=== PATIENT | male | born 1945 | race Caucasian/White ===

== ENCOUNTER 2018-10-10 21:14 | Inpatient (IN) ==
[2018-10-10] MEDS ORDERED: FLUCONAZOLE 100 MG TABLET PO ONE (21:27)
[2018-10-10] MEDS ORDERED: 0.9 % SODIUM CHLORIDE 500 ML IV ONE (21:29)
[2018-10-10] MEDS ORDERED: cefTRIAXone 1 GM VIAL IV ONE (21:30)
[2018-10-10 22:59] LABS: Basophils # (Auto) 0 K/mcL (0.0-0.3); Basophils % (Auto) 0 % (0.0-2.0); Eosinophils # (Auto) 0.1 K/mcL (0.0-0.7); Eosinophils % (Auto) 0.4 % (0.0-7.0); Lymphocytes # (Auto) 0.4 K/mcL (1.5-4.8); Lymphocytes % (Auto) 3.4 % (15.5-49.0); Mean Cell Volume 82.3 fL (80.0-100.0); Mean Corpuscular HGB Conc 32.4 g/dL (31.0-36.0); Monocytes # (Auto) 0 K/mcL (0.1-0.9); Monocytes % (Auto) 0.2 % (1.0-12.0); Platelet Count 94 K/mcL (140-440); Red Cell Distribution Width 22.7 % (11.5-14.5)
[2018-10-10 23:19] LABS: ALT/SGPT 231 U/l (0-40); Albumin 2.3 gm/dL (3.2-5.2); Albumin/Globulin Ratio 0.8 (1.0-2.3); Alkaline Phosphatase 208 U/L (39-117); Blood Urea Nitrogen 46 mg/dl (8-23)
[2018-10-10] MEDS ORDERED: FUROSEMIDE 40 MG/4 ML VIAL IV ONE (23:43)
[2018-10-11] MEDS ORDERED: LEVOFLOXACIN 500 MG/100 ML BAG IV ONE (00:08)
--- NOTE | 2018-10-11 00:34 | Emergency Department Note ---
General Adult HPI - General Chief complaint: Cold/Flu Symptoms Stated complaint: crackles in lunch Time Seen by Provider: 10/10/18 21:19 Source: patient Mode of arrival: wheelchair Limitations: no limitations - History of Present Illness HPI Narrative: 73-year-old male comes in after being sick for [facility]. He has audible rales without a stethoscope and thrush. General malaise but no fever. He is DNR and comfort measures only but is post form shows that he approves of antibiotics blood products and fluids are okay-he does want treatment at this time - Related Data Home Medications Medication Instructions Recorded Confirmed Acetaminophen [Tylenol] 500 mg PO Q8HP PRN 10/11/18 10/11/18 Amiodarone HCl [Cordarone] 200 mg PO QAC 10/11/18 10/11/18 Amoxicillin/Potassium Clav 875 mg PO Q12H 10/11/18 10/11/18 [Augmentin] Aspirin [Aspirin EC] 81 mg PO DAILY 10/11/18 10/11/18 Atorvastatin [Lipitor] 40 mg PO HS 10/11/18 10/11/18 Bisacodyl [Dulcolax] 10 mg HI PRN PRN 10/11/18 10/11/18 Cholecalciferol (Vitamin D3) 5,000 unit PO WEEKLY 10/11/18 10/11/18 [Dialyvite Vitamin D] Dexamethasone [Decadron] 4 mg PO QID 10/11/18 10/11/18 Ferrous Sulfate [Iron] 325 mg PO Q48 10/11/18 10/11/18 Furosemide [Lasix] 20 mg PO DAILY 10/11/18 10/11/18 Gabapentin [Neurontin] 300 mg PO HS 10/11/18 10/11/18 Hydrocodone/APAP 7.5/325Mg [[place] 1 - 2 tab PO Q4HP PRN 10/11/18 10/11/18 7.5-325Mg] Insulin Glargine, Human [Lantus] 15 unit SQ HS 10/11/18 10/11/18 Insulin Glargine, Human [Lantus] 21 unit SQ DAILY 10/11/18 10/11/18 Insulin Lispro [HumaLOG] 0 unit SQ ACHS 10/11/18 10/11/18 Latanoprost/Pf [Latanoprost 0.005% 7.5 ml OP HS 10/11/18 10/11/18 Eye Drop] Mag Hydrox/Al Hydrox/Simeth 30 ml PO Q4HP PRN 10/11/18 10/11/18 [Maalox] Melatonin [Melatin] 6 mg PO HSP PRN 10/11/18 10/11/18 Metoprolol Succinate [Toprol Xl] 25 mg PO DAILY 10/11/18 10/11/18 Na Phos,M-B/Na Phos,Di-Ba [Fleets 1 dose HI PRN PRN 10/11/18 10/11/18 Adult] Pantoprazole [Protonix] 40 mg PO QAMAC 10/11/18 10/11/18 Timolol Maleate/Pf [Timoptic 0.5% 1 each OS BID 10/11/18 10/11/18 Ocudose Drop] Warfarin [Coumadin] 2.5 mg PO DAILY 10/11/18 10/11/18 buPROPion HCL [Wellbutrin Xl] 150 mg PO DAILY 10/11/18 10/11/18 Allergies Allergy/AdvReac Type Severity Reaction Status Date / Time No Known Drug Allergies Allergy Unverified 10/10/18 21:17 Review of Systems All systems ED: reviewed and negative except as stated. Past Medical History - Past Medical History Attestation: Yes: The following information was validated with the patient. Medical history: Reports: arthritis, CHF, DM, glaucoma, hyperlipidemia, hypertension, pulmonary embolus Surgical history ED: Reports: coronary bypass (CABG), pacemaker/AICD - Social History smoking status: Former smoker Physical Exam Ill-appearing male. Normocephalic atraumatic. Conjunctive are clear sclerae nonicteric. No nasal discharge or congestion. Oropharynx is with somewhat dry buccal mucosa-he has white exudate all over his soft palate consistent with thrush. Posterior pharynx is clear. Neck is supple without lymphadenopathy thyromegaly or carotid bruit. Heart is regular rate and rhythm. No murmur appreciated. Lungs are with rales audible even without a stethoscope. End expiratory wheezes as well. Productive cough. Abdomen is soft nontender nondistended. He has a below the knee amputation on the right. Alert oriented but depressed mood Limitations: no limitations Course Vital Signs Temperature 96.3 F L 10/10/18 21:15 Pulse Rate 73 10/10/18 21:15 Respiratory Rate 20 10/10/18 21:15 Blood Pressure 116/69 10/10/18 21:15 Pulse Oximetry (%) 96 10/10/18 21:15 Temperature 98.2 F 10/11/18 03:40 Pulse Rate 56 L 10/11/18 00:31 Respiratory Rate 22 10/11/18 03:40 Blood Pressure 101/60 10/11/18 03:40 Pulse Oximetry (%) 96 10/11/18 03:40 Medical Decision Making - Medical Records Medical records reviewed: Yes I reviewed the patient's medical records. - Lab Data Lab results reviewed: Yes I reviewed the patient's lab results. Result diagrams: 10/10/18 21:42 10/10/18 21:42 Lab Results 10/10/18 10/10/18 10/10/18 Range/Units 21:42 21:42 21:42 WBC 12.6 H (4.5-11.0) K/mcL RBC 4.90 (4.50-5.90) M/mcL Hgb 13.1 L (13.5-16.5) g/dL Hct 40.4 L (41.0-55.0) % POC Hct 41.0 (41.0-55.0) % MCV 82.3 (80.0-100.0) fL MCH 26.7 (26.0-34.0) pg MCHC 32.4 (31.0-36.0) g/dL RDW 22.7 H (11.5-14.5) % Plt Count 94 L (140-440) K/mcL MPV 9.1 (7.4-10.4) fL Gran % 96.0 H (38.0-78.0) % Lymph % (Auto) 3.4 L (15.5-49.0) % Douglas % (Auto) 0.2 L (1.0-12.0) % Eos % (Auto) 0.4 (0.0-7.0) % Baso % (Auto) 0 (0.0-2.0) % Gran # 12.1 H (1.8-8.0) K/mcL Lymph # (Auto) 0.4 L (1.5-4.8) K/mcL Douglas # (Auto) 0 L (0.1-0.9) K/mcL Eos # (Auto) 0.1 (0.0-0.7) K/mcL Baso # (Auto) 0 (0.0-0.3) K/mcL Differential Comment Rare nrbcs on scan PT (11.9-14.5) sec INR (0.9-1.1) VBG Lactic Acid 2.7 H (0.5-2.0) mmol/L POC Sodium 137 (133-145) mmol/L Sodium 135 (133-145) mmol/L POC Potassium 4.6 (3.3-5.1) mmol/L Potassium 4.9 (3.3-5.1) mmol/L POC Chloride 103 (96-108) mmol/L Chloride 102 (96-108) mmol/L Carbon Dioxide 21 L (22-30) mmol/L POC Total CO2 22 (22-30) mmol/L Anion Gap 12.0 (8-16) POC BUN 42 H (8-23) mg/dl BUN 46 H (8-23) mg/dl Creatinine 1.1 (0.7-1.2) mg/dl POC Creatinine 1.0 (0.7-1.2) mg/dl GFR Calculation 65 Glucose 279 H (70-105) mg/dL POC Glucose 227 H (70-105) mg/dL Calcium 7.8 L (8.6-10.4) mg/dl POC WB Ioniz Calcium 1.06 L (1.16-1.32) mmol/L Magnesium 2.0 (1.6-2.5) mg/dL Total Bilirubin 0.4 (0.0-1.0) mg/dL AST 60 H (0-37) U/l ALT 231 H (0-40) U/l Alkaline Phosphatase 208 H (39-117) U/L NT-Pro-B Natriuret Pep Total Protein 5.1 L (5.9-8.4) gm/dL Albumin 2.3 L (3.2-5.2) gm/dL Globulin 2.8 (2.2-3.7) gm/dL Albumin/Globulin Ratio 0.8 L (1.0-2.3) Procalcitonin (<0.10) ng/mL 03/12/19 03/12/19 03/12/19 Range/Units 21:42 21:42 21:42 WBC (4.5-11.0) K/mcL RBC (4.50-5.90) M/mcL Hgb (13.5-16.5) g/dL Hct (41.0-55.0) % POC Hct (41.0-55.0) % MCV (80.0-100.0) fL MCH (26.0-34.0) pg MCHC (31.0-36.0) g/dL RDW (11.5-14.5) % Plt Count (140-440) K/mcL MPV (7.4-10.4) fL Gran % (38.0-78.0) % Lymph % (Auto) (15.5-49.0) % Douglas % (Auto) (1.0-12.0) % Eos % (Auto) (0.0-7.0) % Baso % (Auto) (0.0-2.0) % Gran # (1.8-8.0) K/mcL Lymph # (Auto) (1.5-4.8) K/mcL Douglas # (Auto) (0.1-0.9) K/mcL Eos # (Auto) (0.0-0.7) K/mcL Baso # (Auto) (0.0-0.3) K/mcL Differential Comment PT 28.5 H (11.9-14.5) sec INR 2.7 H (0.9-1.1) VBG Lactic Acid (0.5-2.0) mmol/L POC Sodium (133-145) mmol/L Sodium (133-145) mmol/L POC Potassium (3.3-5.1) mmol/L Potassium (3.3-5.1) mmol/L POC Chloride (96-108) mmol/L Chloride (96-108) mmol/L Carbon Dioxide (22-30) mmol/L POC Total CO2 (22-30) mmol/L Anion Gap (8-16) POC BUN (8-23) mg/dl BUN (8-23) mg/dl Creatinine (0.7-1.2) mg/dl POC Creatinine (0.7-1.2) mg/dl GFR Calculation Glucose (70-105) mg/dL POC Glucose (70-105) mg/dL Calcium (8.6-10.4) mg/dl POC WB Ioniz Calcium (1.16-1.32) mmol/L Magnesium (1.6-2.5) mg/dL Total Bilirubin (0.0-1.0) mg/dL AST (0-37) U/l ALT (0-40) U/l Alkaline Phosphatase (39-117) U/L NT-Pro-B Natriuret Pep TNP Total Protein (5.9-8.4) gm/dL Albumin (3.2-5.2) gm/dL Globulin (2.2-3.7) gm/dL Albumin/Globulin Ratio (1.0-2.3) Procalcitonin 0.17 (<0.10) ng/mL 10/11/18 Range/Units 00:16 WBC (4.5-11.0) K/mcL RBC (4.50-5.90) M/mcL Hgb (13.5-16.5) g/dL Hct (41.0-55.0) % POC Hct (41.0-55.0) % MCV (80.0-100.0) fL MCH (26.0-34.0) pg MCHC (31.0-36.0) g/dL RDW (11.5-14.5) % Plt Count (140-440) K/mcL MPV (7.4-10.4) fL Gran % (38.0-78.0) % Lymph % (Auto) (15.5-49.0) % Douglas % (Auto) (1.0-12.0) % Eos % (Auto) (0.0-7.0) % Baso % (Auto) (0.0-2.0) % Gran # (1.8-8.0) K/mcL Lymph # (Auto) (1.5-4.8) K/mcL Douglas # (Auto) (0.1-0.9) K/mcL Eos # (Auto) (0.0-0.7) K/mcL Baso # (Auto) (0.0-0.3) K/mcL Differential Comment PT (11.9-14.5) sec INR (0.9-1.1) VBG Lactic Acid (0.5-2.0) mmol/L POC Sodium (133-145) mmol/L Sodium (133-145) mmol/L POC Potassium (3.3-5.1) mmol/L Potassium (3.3-5.1) mmol/L POC Chloride (96-108) mmol/L Chloride (96-108) mmol/L Carbon Dioxide (22-30) mmol/L POC Total CO2 (22-30) mmol/L Anion Gap (8-16) POC BUN (8-23) mg/dl BUN (8-23) mg/dl Creatinine (0.7-1.2) mg/dl POC Creatinine (0.7-1.2) mg/dl GFR Calculation Glucose (70-105) mg/dL POC Glucose (70-105) mg/dL Calcium (8.6-10.4) mg/dl POC WB Ioniz Calcium (1.16-1.32) mmol/L Magnesium (1.6-2.5) mg/dL Total Bilirubin (0.0-1.0) mg/dL AST (0-37) U/l ALT (0-40) U/l Alkaline Phosphatase (39-117) U/L NT-Pro-B Natriuret Pep 9457.0 H Total Protein (5.9-8.4) gm/dL Albumin (3.2-5.2) gm/dL Globulin (2.2-3.7) gm/dL Albumin/Globulin Ratio (1.0-2.3) Procalcitonin (<0.10) ng/mL Arterial blood gases pH 7.48 PCO2 33 PO2 69 - Radiology Data Radiology results reviewed: Yes I reviewed the patient's radiology results. Chest x-ray shows bilateral infiltrates more prominent on the left. Could be underlying or superimposed pulmonary vascular congestion Disposition Pt seen by [facility] [facility]/PA only: No Clinical Impression: Thrush of mouth and esophagus Pneumonia Qualifiers: Pneumonia type: due to unspecified organism Laterality: left Lung location: unspecified part of lung Qualified Code(s): J18.9 - Pneumonia, unspecified organism CHF (congestive heart failure) Qualifiers: Heart failure type: unspecified Heart failure chronicity: acute on chronic Qualified Code(s): I50.9 - Heart failure, unspecified Summary: Patient was seen and evaluated found to have pneumonia with underlying CHF as well, perhaps fluid overloaded. Vital signs were stable. We got blood cultures and started Rocephin for the pneumonia fluconazole for the thrush and furosemide for the CHF. patient did not want to come into the hospital here but wanted to go to [facility] in [place] as his family is that area. However I discussed the case with the hospitalist at [facility], Dr. Benavides, who is willing to accept the patient but likely Medicare would not pay for lateral transfer. So I discussed the case with Dr. Sultana, the hospitalist here who agreed to accept the patient for further care and evaluation in the hospital. He advised me to add Levaquin Disposition: Xfer As Inpt ([facility]) Condition: Fair
[2018-10-11] MEDS ORDERED: HYDROcodone/APAP 5/325MG TABLET PO PRN (00:35)
[2018-10-11] MEDS ORDERED: ONDANSETRON 4 MG/2 ML VIAL IV PRN (00:35)
--- NOTE | 2018-10-11 03:16 | XRay Report ---
CLINICAL INFORMATION: rales COMPARISON: 06/07/2018 FINDINGS: Implantable cardioverter defibrillator remains stable satisfactory position without evidence of wire breakage or other complication. Transcatheter aortic valve replacement remains in stable position without evidence of complication. Sternotomy change is again noted.Mild cardiomegaly is stable. Mediastinum and pulmonary vasculature are, otherwise, unremarkable. Mild infiltrates present in both perihilar regions - more prominent on the left. No effusions IMPRESSION: Bilateral perihilar infiltrates - more prominent on the left. Interpreted and Authenticated by: Valdo Coughlin 10/11/18
[2018-10-11] MEDS ORDERED: DEXTROSE 31 GM ORAL.SUSP PO PRN (07:15)
[2018-10-11] MEDS ORDERED: POTASSIUM CHLORIDE 20 MEQ PACKET PO PRN (07:15)
[2018-10-11] MEDS ORDERED: MAGNESIUM SULFATE 2 GM/50 ML BAG IV PRN (07:15)
[2018-10-11] MEDS ORDERED: ACETAMINOPHEN 325 MG TABLET PO PRN (07:15)
[2018-10-11] MEDS ORDERED: MELATONIN 3 MG TABLET PO PRN (07:17)
[2018-10-11] MEDS ORDERED: ACETAMINOPHEN 500 MG TABLET PO PRN (07:17)
[2018-10-11] MEDS ORDERED: BISACODYL 10 MG SUPP.RECT PR PRN (07:17)
[2018-10-11] MEDS ORDERED: MAG HYDROX/AL HYDROX/SIMETH 30 ML ORAL.SUSP PO PRN (07:17)
--- NOTE | 2018-10-11 07:50 | Internal Med History&Physical ---
Medical - H&P: HPI Patient information: Note initiated : 10/11/18 at 7:44 am Service Date, if different from initiated Date: [] Patient: Vadim Key 73 y/o M admitted on 10/11/18 for Crackles In Lung. Chief Complaint: [] Chief complaint: SOB History of present illness: Mr. Key is a 73 year old M with a history of NYHA class III systolic heart failure with EF 26%/TAPVR/pulmonary embolism/atrial fibrillation/insulin- dependent diabetes who presents to [facility] ER from [facility] at [place] with worsening shortness of breath that has progressed over the last couple of weeks. Patient is accompanied with his [place]. Patient lives at [place] and sees primary care physician Dr. Rodriguez. He has been recovering from recent hospitalization at [place] and was transferred to [facility]. Patient denies shaking chills fever however endorses to being increasingly fatigued and weak over the last couple of weeks. Symptoms associated with productive yellow sputum. Denies associated shaking chills headache myalgia or joint pain or rash. He complains of associated loss of appetite. He has not been able to function or participate in therapies in the last few days. Initial workup in the ER was consistent with chest infiltrates consistent with pneumonia and sepsis with elevated white count. Hospitalist service was consulted for admission after patient received antibiotics along breathing treatments. At the time evaluation patient is lethargic fatigued. No family present. Was able to endorse a history as above but was very weak to provide a detailed history. Most of the history is obtained from review of medical records and ER physician. Review of systems 10 point review of system was performed and is negative except as discussed above Medical - H&P: PMH Medical history: Insulin-dependent diabetes History of CAD History of pulmonary embolism 03/2018 History of NYHA class III systolic heart failure with EF 26-34% CABG four-vessel 1987, CABG three-vessel 9098 Chronic kidney disease stage III Aortic valve stenosis Lumbar spinal stenosis Atrial fibrillation Anticoagulation Coumadin Pacemaker defibrillator Peripheral vascular disease Hypertension Vascular disease Anxiety depression Surgical history: CABG Right leg amputation BKA 05/09/18 Pheochrome, 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 TA VR 10/2016 Pertinent family history: Mother CVA Father CAD/narcolepsy Sister back problem, renal stone Social history: to his Marlys Lives in [place] Quit smoking 3 years ago Currently undergoing rehabilitation at [facility] PCP at [facility] - H&P: Meds Home Medications Medication Instructions Recorded Confirmed Type Acetaminophen [Tylenol] 500 mg PO Q8HP PRN 10/11/18 10/11/18 History Amiodarone HCl [Cordarone] 200 mg PO QAMCC 10/11/18 10/11/18 History Amoxicillin/Potassium Clav 875 mg PO Q12H 10/11/18 10/11/18 History [Augmentin] Aspirin [Aspirin EC] 81 mg PO DAILY 10/11/18 10/11/18 History Atorvastatin [Lipitor] 40 mg PO HS 10/11/18 10/11/18 History Bisacodyl [Dulcolax] 10 mg SC PRN PRN 10/11/18 10/11/18 History Cholecalciferol (Vitamin D3) 5,000 unit PO WEEKLY 10/11/18 10/11/18 History [Dialyvite Vitamin D] Dexamethasone [Decadron] 4 mg PO QID 10/11/18 10/11/18 History Ferrous Sulfate [Iron] 325 mg PO Q48 10/11/18 10/11/18 History Furosemide [Lasix] 20 mg PO DAILY 10/11/18 10/11/18 History Gabapentin [Neurontin] 300 mg PO HS 10/11/18 10/11/18 History Hydrocodone/APAP 7.5/325Mg [[place] 1 - 2 tab PO Q4HP PRN 10/11/18 10/11/18 History 7.5-325Mg] Insulin Glargine, Human [Lantus] 15 unit SQ HS 10/11/18 10/11/18 History Insulin Glargine, Human [Lantus] 21 unit SQ DAILY 10/11/18 10/11/18 History Insulin Lispro [HumaLOG] 0 unit SQ ACHS 10/11/18 10/11/18 History Latanoprost/Pf [Latanoprost 0.005% 7.5 ml OP HS 10/11/18 10/11/18 History Eye Drop] Mag Hydrox/Al Hydrox/Simeth 30 ml PO Q4HP PRN 10/11/18 10/11/18 History [Maalox] Melatonin [Melatin] 6 mg PO HSP PRN 10/11/18 10/11/18 History Metoprolol Succinate [Toprol Xl] 25 mg PO DAILY 10/11/18 10/11/18 History Na Phos,M-B/Na Phos,Di-Ba [Fleets 1 dose SC PRN PRN 10/11/18 10/11/18 History Adult] Pantoprazole [Protonix] 40 mg PO QAMAC 10/11/18 10/11/18 History Timolol Maleate/Pf [Timoptic 0.5% 1 each OS BID 10/11/18 10/11/18 History Ocudose Drop] Warfarin [Coumadin] 2.5 mg PO DAILY 10/11/18 10/11/18 History buPROPion HCL [Wellbutrin Xl] 150 mg PO DAILY 10/11/18 10/11/18 History Allergies Allergy/AdvReac Type Severity Reaction Status Date / Time No Known Drug Allergies Allergy Unverified 10/10/18 21:17 Medical - H&P: Exam - Constitutional Vitals: Temp Pulse Resp BP Pulse Ox 98.2 F 56 L 22 101/60 96 10/11/18 03:40 10/11/18 00:31 10/11/18 03:40 10/11/18 03:40 10/11/18 03:40 Exam: Fatigue and malaise Head normocephalic Neck lymphadenopathy Oral cavity dry No ear discharge S1 and S2 irregular rhythm, pacemaker, a midline sternotomy incision Diminished breath sounds with inspiratory crackles Abdomen soft Right BKA, upper and lower extremity abrasion,/crusted lesions Sacral ulceration Generalized bruising Psychiatric anxious fatigued Neuro normal heart function Medical - H&P: Reslt - Labs CBC & Chem 7: 10/10/18 21:42 10/10/18 21:42 Labs: Short CBC 10/10/18 Range/Units 21:42 WBC 12.6 H (4.5-11.0) K/mcL Hgb 13.1 L (13.5-16.5) g/dL Hct 40.4 L (41.0-55.0) % Plt Count 94 L (140-440) K/mcL BMP 10/10/18 21:42 Sodium 135 Potassium 4.9 Chloride 102 Carbon Dioxide 21 L BUN 46 H Creatinine 1.1 Glucose 279 H Calcium 7.8 L Liver Function 10/10/18 Range/Units 21:42 Total Bilirubin 0.4 (0.0-1.0) mg/dL AST 60 H (0-37) U/l ALT 231 H (0-40) U/l Alkaline Phosphatase 208 H (39-117) U/L Albumin 2.3 L (3.2-5.2) gm/dL Medical - H&P: A/P (1) Nosocomial pneumonia Current visit: Yes Status: Acute * Nosocomial versus aspiration pneumonia-initiate broad antibiotic coverage for anaerobes/gram negatives, sputum/blood cultures, aspiration precaution. Initiate ST eval * Hypoxic respiratory failure secondary to above-antibiotic coverage * History of CAD/A. fib/defibrillator pacemaker. Last echo 34%, nuclear stress test 2018 26%. * DM type II continue basal prandial insulin * Generalized weakness started PT OT/nutrition support * Hyperlipidemia on statin * History of CAD on aspirin and statin, metoprolol * Atrial fibrillation on amiodarone/metoprolol/anticoagulation on Coumadin * History of PE-continue anticoagulation * History of glaucoma continue Timolol/latanoprost * Anxiety disorder on bupropion * Neuropathy and gabapentin * DNR * Prophylaxis Coumadin Plan * Await records from PCP office * Empiric broad antibiotic coverage * ST eval/aspiration precaution * Pre-existing medical condition management as above * PT OT/nutrition support * Inpatient admission PSI score over 100, anticipate minimum two midnight hospitalization Medical - H&P: Qual - VTE Deep Vein Thrombosis/Pulmonary Embolism Present on Admission: No
[2018-10-11] MEDS: HYDROCODONE/APAP 7.5/325MG TABLET PO PRN ×3 (08:10→20:31)
[2018-10-11] MEDS: AMIODARONE HCL 200 MG TABLET PO SCH (08:13)
[2018-10-11] MEDS: PANTOPRAZOLE 40 MG TABLET PO SCH (08:13)
[2018-10-11] MEDS: INSULIN LISPRO 1 UNIT/0.01 ML UNIT SQ SCH ×4 (08:26→20:42)
[2018-10-11] MEDS ORDERED: BUDESONIDE 0.5 MG/2 ML AMPUL.NEB NEB SCH (09:00)
[2018-10-11] MEDS ORDERED: cefTRIAXone 2 GM in DEXTROSE 5% IN WATER 50 ML IV SCH (09:00)
[2018-10-11] MEDS: PIPERACILLIN SODIUM/TAZOBACTAM 3.375 GM in DEXTROSE 5% IN WATER 50 ML IV SCH ×3 (09:00→17:53)
[2018-10-11] MEDS: LEVOFLOXACIN 750 MG/150 ML BAG IV SCH (10:00)
[2018-10-11] MEDS: INSULIN GLARGINE, HUMAN 1 UNIT/0.01 ML SQ SCH (10:36)
[2018-10-11] MEDS: ASPIRIN 81 MG TAB.CHEW PO SCH (10:41)
[2018-10-11] MEDS: MULTIVIT,THER IRON,CA,FA & MIN 1 TABLET PO SCH (10:41)
[2018-10-11] MEDS: FUROSEMIDE 20 MG TABLET PO SCH (10:41)
[2018-10-11] MEDS: DOCUSATE SODIUM 100 MG CAPSULE PO SCH ×2 (10:41→20:31)
[2018-10-11] MEDS: METOPROLOL SUCCINATE 25 MG TAB.XL.24H PO SCH (10:41)
[2018-10-11] MEDS: sitaGLIPtin 100 MG TABLET PO SCH (10:55)
[2018-10-11] MEDS: buPROPion 150 MG TAB.XL.24H PO SCH (10:55)
[2018-10-11] MEDS ORDERED: IPRATROPIUM/ALBUTEROL 3 ML AMPUL.NEB NEB SCH (11:00)
[2018-10-11] MEDS: CLOTRIMAZOLE 10 MG TROCHE PO SCH ×4 (12:08→20:31)
[2018-10-11] MEDS ORDERED: IPRATROPIUM/ALBUTEROL 3 ML AMPUL.NEB NEB PRN (12:40)
[2018-10-11] MEDS: 0.9 % SODIUM CHLORIDE 10 ML SYRINGE IV SCH ×2 (13:05→23:33)
[2018-10-11] MEDS: WARFARIN 2.5 MG TABLET PO SCH (13:08)
--- NOTE | 2018-10-11 15:28 | Internal Med Progress Note ---
Medical - PN: Subj Patient information: Note initiated : 10/11/18 at 3:25 pm Service Date, if different from initiated Date: [] Patient: Vadim Key 73 y/o M admitted on 10/11/18 for Crackles In Lung. Chief Complaint: [] Interval history: Mr. Key is a 73 year old M with a history of NYHA class III systolic heart failure with EF 26%/TAPVR/pulmonary embolism/atrial fibrillation/insulin- dependent diabetes who presents to [facility] ER from [facility] at [place] with worsening shortness of breath that has progressed over the last couple of weeks. Patient is accompanied with his [facility]. Patient lives at [place] and sees primary care physician Dr. Rodriguez. He has been recovering from recent hospitalization at [place] and was transferred to [facility]. Patient denies shaking chills fever however endorses to being increasingly fatigued and weak over the last couple of weeks. Symptoms associated with productive yellow sputum. Denies associated shaking chills headache myalgia or joint pain or rash. He complains of associated loss of appetite. He has not been able to function or participate in therapies in the last few days. Initial workup in the ER was consistent with chest infiltrates consistent with pneumonia and sepsis with elevated white count. Hospitalist service was consulted for admission after patient received antibiotics along breathing treatments. At the time evaluation patient is lethargic fatigued. No family present. Was able to endorse a history as above but was very weak to provide a detailed history. Most of the history is obtained from review of medical records and ER physician. 10/12 - Constitutional Vitals: Vital Signs Temp Pulse Resp BP Pulse Ox 96.8 F L 70 20 115/70 94 10/11/18 12:33 10/11/18 11:22 10/11/18 13:11 10/11/18 12:33 10/11/18 13:11 Period Temp Pulse Resp BP Sys/Saldivar Pulse Ox Last 24 Hr 96.3 F-98.2 F 56-73 18-24 100-120/60-75 92-97 Intake and Output 10/11/18 10/11/18 10/11/18 05:59 13:59 21:59 Intake Total 100 690 Output Total 201 250 275 Balance -101 440 -275 Weight 69.456 kg Intake & Output: Intake & Output 10/11/18 10/11/18 10/11/18 05:59 13:59 21:59 Intake Total 100 690 Output Total 201 250 275 Balance -101 440 -275 Weight 69.456 kg Intake: IV 100 250 Zosyn 3.375 gm In Dextrose 5% 100 in Water 50 ml @ 100 mls/hr IV Q6H [facility] Rx#:[id number] Oral 440 Output: Void Amount 200 250 275 # of times incontinent of urine 1 Other: Meal Lunch Percent of Meal Consumed 100% Feeding Ability Assist with Tray Set Up Urine Appearance Clear Clear Urine Color Light Jocelin Light Jocelin Exam: General: Alert, Awake, No acute Distress Eyes/N/T: EOMI, Head/Neck: neck supple, CV: irreg irreg, Pulm: Diminished bilaterally, rales bilaterally Abd: soft, nontender, +BS x4 Ext: right BKA, Neuro: Alert, no focal deficits, moves all extremities, Skin: warm/dry Medical - PN: Obj Da - Labs CBC & Chem 7: 10/10/18 21:42 10/10/18 21:42 Labs: Abnormal Lab Results 10/11/18 10/11/18 10/10/18 08:02 00:16 21:42 WBC Hgb Hct RDW Plt Count Gran % Lymph % (Auto) [place] % (Auto) Gran # Lymph # (Auto) [place] # (Auto) PT 28.3 H 28.5 H INR 2.7 H 2.7 H VBG Lactic Acid Carbon Dioxide POC BUN BUN Glucose POC Glucose Calcium POC WB Ioniz Calcium AST ALT Alkaline Phosphatase NT-Pro-B Natriuret Pep 9457.0 H Total Protein Albumin Albumin/Globulin Ratio 10/10/18 10/10/18 10/10/18 21:42 21:42 21:42 WBC 12.6 H Hgb 13.1 L Hct 40.4 L RDW 22.7 H Plt Count 94 L Gran % 96.0 H Lymph % (Auto) 3.4 L [place] % (Auto) 0.2 L Gran # 12.1 H Lymph # (Auto) 0.4 L [place] # (Auto) 0 L PT INR VBG Lactic Acid 2.7 H Carbon Dioxide 21 L POC BUN 42 H BUN 46 H Glucose 279 H POC Glucose 227 H Calcium 7.8 L POC WB Ioniz Calcium 1.06 L AST 60 H ALT 231 H Alkaline Phosphatase 208 H NT-Pro-B Natriuret Pep Total Protein 5.1 L Albumin 2.3 L Albumin/Globulin Ratio 0.8 L Meds: Medications Acetaminophen (Tylenol) 650 mg PO Q4-6HP PRN PRN Reason: PAIN/FEVER > 101 Last Admin: 10/11/18 14:50 Dose: 650 mg Documented by: Hydrocodone Bitart/Acetaminophen ([place] 5/325mg) 1 tab PO Q4HP PRN PRN Reason: PAIN LEVEL 3-6 Hydrocodone Bitart/Acetaminophen ([place] 7.5/325mg) 1 - 2 tab PO Q4HP PRN PRN Reason: Pain Last Admin: 10/11/18 13:05 Dose: 2 tab Documented by: Al Hydrox/Mg Hydrox/Simethicone (Maalox) 30 ml PO Q4HP PRN PRN Reason: Constipation Albuterol/Ipratropium (Duoneb) 3 ml NEB Q4HP PRN PRN Reason: Shortness Of Breath Or Wheezing Amiodarone HCl (Cordarone) 200 mg PO [facility] Last Admin: 10/11/18 08:13 Dose: 200 mg Documented by: Aspirin (Aspirin) 81 mg PO DAILY [facility] Last Admin: 10/11/18 10:41 Dose: 81 mg Documented by: Atorvastatin Calcium (Lipitor) 40 mg PO HS [facility] Bisacodyl (Dulcolax) 10 mg MD PRN PRN PRN Reason: Congestion Bupropion HCl (Wellbutrin Xl) 150 mg PO DAILY [facility] Last Admin: 10/11/18 10:55 Dose: 150 mg Documented by: Clotrimazole (Mycelex) 10 mg PO 5XD [facility] Last Admin: 10/11/18 14:50 Dose: 10 mg Documented by: Dextrose (Dextrose 50%) 0 ml IV UD PRN PRN Reason: Hypoglycemia Diagnostic Test (Pha) (Accu-Chek) 1 each FS ACHS [facility] Last Admin: 10/11/18 12:06 Dose: 1 each Documented by: Docusate Sodium (Colace) 100 mg PO BID [facility] Last Admin: 10/11/18 10:41 Dose: 100 mg Documented by: Furosemide (Lasix) 20 mg PO DAILY [facility] Last Admin: 10/11/18 10:41 Dose: 20 mg Documented by: Gabapentin (Neurontin) 300 mg PO HS [facility] Glucose (Insta-Glucose) 15 gm PO PRN PRN PRN Reason: Hypoglycemia Levofloxacin (Levaquin) 750 mg in 150 mls @ 100 mls/hr IV Q24H [facility] Last Infusion: 10/11/18 11:30 Dose: Infused Documented by: Magnesium Sulfate (Magnesium Sulfate) 2 gm in 50 mls @ 50 mls/hr IV UD PRN PRN Reason: MG = or < 1.7 Acetaminophen (Ofirmev) 1,000 mg in 100 mls @ 200 mls/hr IV Q6HP PRN PRN Reason: PAIN/FEVER > 101 Piperacillin Sod/Tazobactam (Sod 3.375 gm/ Dextrose) 50 mls @ 100 mls/hr IV Q6H [facility]; Protocol Last Infusion: 10/11/18 13:35 Dose: Infused Documented by: Insulin Glargine (Lantus) 15 unit SQ HS [facility] Insulin Glargine (Lantus) 21 unit SQ DAILY [facility] Last Admin: 10/11/18 10:36 Dose: 21 unit Documented by: Insulin Human Lispro (Humalog) 0 unit SQ [facility]; Protocol Last Admin: 10/11/18 12:08 Dose: 2 unit Documented by: Iron Carb/Multivit/[place]/Folic Acid (Multivitamin W/Minerals) 1 tab PO DAILY [facility] Last Admin: 10/11/18 10:41 Dose: 1 tab Documented by: Latanoprost (Xalatan Ophth Drops) 1 gtt [facility] Melatonin (Melatonin 3mg Tablet) 6 mg PO HSP PRN PRN Reason: Insomnia Metoprolol Succinate (Toprol Xl) 25 mg PO DAILY [facility] Last Admin: 10/11/18 10:41 Dose: 25 mg Documented by: Ondansetron HCl (Zofran) 4 mg IV Q4HP PRN PRN Reason: Nausea And Vomiting Pantoprazole Sodium (Protonix) 40 mg PO QAMAC [facility] Last Admin: 10/11/18 08:13 Dose: 40 mg Documented by: Timolol Maleate 0.5% (Eye Drops) 1 dose OS BID [facility] Last Admin: 10/11/18 10:41 Dose: Not Given Documented by: Potassium Chloride (Klor-Con) 40 meq PO DAILYP PRN PRN Reason: K+ < 3.5 Senna/Docusate Sodium (Senna Plus Tablet) 1 tab PO HS [facility] Sitagliptin Phosphate (Januvia) 100 mg PO DAILY [facility] Last Admin: 10/11/18 10:55 Dose: 100 mg Documented by: Sodium Chloride (Saline Flush) 10 ml IV Q8 [facility] Last Admin: 10/11/18 13:05 Dose: 10 ml Documented by: Warfarin Sodium (Coumadin) 2.5 mg PO DAILY@1400 [facility] Last Admin: 10/11/18 13:08 Dose: 2.5 mg Documented by: Warfarin Sodium (Coumadin Per Pharmacy) 1 order PO UD [facility] Medical - PN: A/P - Time Spent With Patient Total time spent is greater than 50% in coordination of care (as documented) at patient's floor/unit and/or counseling patient: - Narrative A/P Narrative: A: *Nosocomial vs aspiration pneumonia: -PSI score over 100, anticipate minimum two midnight hospitalization *Acute Hypoxic respiratory failure: 2/2 above -now on room air *CAD & ACID/PPM: Last echo 34%, nuclear stress test 2018 26%. *Atrial fibrillation: on amiodarone/metoprolol/anticoagulation on Coumadin *DM type II w/neuropathy:continue basal prandial insulin *Generalized weakness: *h/o PE: *Anxiety: on bupropion * Plan: -initiate broad antibiotic coverage for anaerobes/gram negatives, sputum/blood cultures, aspiration precaution. Initiate ST eval -records from PCP office -ST eval/aspiration precaution -cont ASA/Statin, BB/Amio -basal insulin and SSI -PT OT/nutrition support -ppx: warfarin per pharm DNR Medical - PN: Qual - VTE Deep Vein Thrombosis/Pulmonary Embolism Present on Admission: No
--- NOTE | 2018-10-11 15:52 | General Surgery Consult Note ---
History of Present Illness Patient information: Note initiated : 10/11/18 at 3:50 pm Service Date, if different from initiated Date: [] Patient: Vadim Key 73 y/o M admitted on 10/11/18 for Crackles In Lung. Chief Complaint: [] Consult date: 10/11/18 Requesting physician: Derrick Clark (Wound Care / Management) History of present illness: I saw this patient is ICU 120 / D along with Loren NOVAK. 73/M Emergently admitted with PNA, CHF, CRF. He has multiple comorbid medical issues ( DM, PAD, AF, on Coumadin and past h/o pheochromocytoma ) and is currently a resident at [facility]. H/O Right BKA, CABG and TAVR . Recent vascular surgery through Left groin approach. DNR orders noted. NOTED to have multiple ecchymotic skin areas over torso and extremities. Fungal rash groins, Superficial epidermal denuded areas of skin at amputation site, Medications and Allergies Home Medications Medication Instructions Recorded Confirmed Type Acetaminophen [Tylenol] 500 mg PO Q8HP PRN 10/11/18 10/11/18 History Amiodarone HCl [Cordarone] 200 mg PO QAC 10/11/18 10/11/18 History Amoxicillin/Potassium Clav 875 mg PO Q12H 10/11/18 10/11/18 History [Augmentin] Aspirin [Aspirin EC] 81 mg PO DAILY 10/11/18 10/11/18 History Atorvastatin [Lipitor] 40 mg PO HS 10/11/18 10/11/18 History Bisacodyl [Dulcolax] 10 mg ID PRN PRN 10/11/18 10/11/18 History Cholecalciferol (Vitamin D3) 5,000 unit PO WEEKLY 10/11/18 10/11/18 History [Dialyvite Vitamin D] Dexamethasone [Decadron] 4 mg PO QID 10/11/18 10/11/18 History Ferrous Sulfate [Iron] 325 mg PO Q48 10/11/18 10/11/18 History Furosemide [Lasix] 20 mg PO DAILY 10/11/18 10/11/18 History Gabapentin [Neurontin] 300 mg PO HS 10/11/18 10/11/18 History Hydrocodone/APAP 7.5/325Mg [Cal Nev Ari 1 - 2 tab PO Q4HP PRN 10/11/18 10/11/18 Histo ry 7.5-325Mg] Insulin Glargine, Human [Lantus] 15 unit SQ HS 10/11/18 10/11/18 History Insulin Glargine, Human [Lantus] 21 unit SQ DAILY 10/11/18 10/11/18 History Insulin Lispro [HumaLOG] 0 unit SQ ACHS 10/11/18 10/11/18 History Latanoprost/Pf [Latanoprost 0.005% 7.5 ml OP HS 10/11/18 10/11/18 History Eye Drop] Mag Hydrox/Al Hydrox/Simeth 30 ml PO Q4HP PRN 10/11/18 10/11/18 History [Maalox] Melatonin [Melatin] 6 mg PO HSP PRN 10/11/18 10/11/18 History Metoprolol Succinate [Toprol Xl] 25 mg PO DAILY 10/11/18 10/11/18 History Na Phos,M-B/Na Phos,Di-Ba [Fleets 1 dose ID PRN PRN 10/11/18 10/11/18 History Adult] Pantoprazole [Protonix] 40 mg PO QAMAC 10/11/18 10/11/18 History Timolol Maleate/Pf [Timoptic 0.5% 1 each OS BID 10/11/18 10/11/18 History Ocudose Drop] Warfarin [Coumadin] 2.5 mg PO DAILY 10/11/18 10/11/18 History buPROPion HCL [Wellbutrin Xl] 150 mg PO DAILY 10/11/18 10/11/18 History Allergies Allergy/AdvReac Type Severity Reaction Status Date / Time No Known Drug Allergies Allergy Unverified 10/10/18 21:17 Exam Temp Pulse Resp BP Pulse Ox 96.8 F L 70 20 115/70 94 10/11/18 12:33 10/11/18 11:22 10/11/18 13:11 10/11/18 12:33 10/11/18 13:11 Results - Labs 10/12/18 03:27 10/12/18 03:27 Abnormal lab results 10/10/18 10/10/18 10/10/18 Range/Units 21:42 21:42 21:42 WBC 12.6 H (4.5-11.0) K/mcL Hgb 13.1 L (13.5-16.5) g/dL Hct 40.4 L (41.0-55.0) % RDW 22.7 H (11.5-14.5) % Plt Count 94 L (140-440) K/mcL Gran % 96.0 H (38.0-78.0) % Lymph % (Auto) 3.4 L (15.5-49.0) % [place] % (Auto) 0.2 L (1.0-12.0) % Gran # 12.1 H (1.8-8.0) K/mcL Lymph # (Auto) 0.4 L (1.5-4.8) K/mcL [place] # (Auto) 0 L (0.1-0.9) K/mcL PT (11.9-14.5) sec INR (0.9-1.1) VBG Lactic Acid 2.7 H (0.5-2.0) mmol/L Carbon Dioxide 21 L (22-30) mmol/L POC BUN 42 H (8-23) mg/dl BUN 46 H (8-23) mg/dl Glucose 279 H (70-105) mg/dL POC Glucose 227 H (70-105) mg/dL Calcium 7.8 L (8.6-10.4) mg/dl POC WB Ioniz Calcium 1.06 L (1.16-1.32) mmol/L AST 60 H (0-37) U/l ALT 231 H (0-40) U/l Alkaline Phosphatase 208 H (39-117) U/L NT-Pro-B Natriuret Pep (0-450) pg/ml Total Protein 5.1 L (5.9-8.4) gm/dL Albumin 2.3 L (3.2-5.2) gm/dL Albumin/Globulin Ratio 0.8 L (1.0-2.3) 10/10/18 10/11/18 10/11/18 Range/Units 21:42 00:16 08:02 WBC (4.5-11.0) K/mcL Hgb (13.5-16.5) g/dL Hct (41.0-55.0) % RDW (11.5-14.5) % Plt Count (140-440) K/mcL Gran % (38.0-78.0) % Lymph % (Auto) (15.5-49.0) % [place] % (Auto) (1.0-12.0) % Gran # (1.8-8.0) K/mcL Lymph # (Auto) (1.5-4.8) K/mcL [place] # (Auto) (0.1-0.9) K/mcL PT 28.5 H 28.3 H (11.9-14.5) sec INR 2.7 H 2.7 H (0.9-1.1) VBG Lactic Acid (0.5-2.0) mmol/L Carbon Dioxide (22-30) mmol/L POC BUN (8-23) mg/dl BUN (8-23) mg/dl Glucose (70-105) mg/dL POC Glucose (70-105) mg/dL Calcium (8.6-10.4) mg/dl POC WB Ioniz Calcium (1.16-1.32) mmol/L AST (0-37) U/l ALT (0-40) U/l Alkaline Phosphatase (39-117) U/L NT-Pro-B Natriuret Pep 9457.0 H (0-450) pg/ml Total Protein (5.9-8.4) gm/dL Albumin (3.2-5.2) gm/dL Albumin/Globulin Ratio (1.0-2.3) Diabetes panel 10/10/18 Range/Units 21:42 Sodium 135 (133-145) mmol/L Potassium 4.9 (3.3-5.1) mmol/L Chloride 102 (96-108) mmol/L Carbon Dioxide 21 L (22-30) mmol/L BUN 46 H (8-23) mg/dl Creatinine 1.1 (0.7-1.2) mg/dl Glucose 279 H (70-105) mg/dL Calcium 7.8 L (8.6-10.4) mg/dl AST 60 H (0-37) U/l ALT 231 H (0-40) U/l Alkaline Phosphatase 208 H (39-117) U/L Total Protein 5.1 L (5.9-8.4) gm/dL Albumin 2.3 L (3.2-5.2) gm/dL Calcium panel 10/10/18 Range/Units 21:42 Calcium 7.8 L (8.6-10.4) mg/dl Albumin 2.3 L (3.2-5.2) gm/dL Pituitary panel 10/10/18 Range/Units 21:42 Sodium 135 (133-145) mmol/L Potassium 4.9 (3.3-5.1) mmol/L Chloride 102 (96-108) mmol/L Carbon Dioxide 21 L (22-30) mmol/L BUN 46 H (8-23) mg/dl Creatinine 1.1 (0.7-1.2) mg/dl Glucose 279 H (70-105) mg/dL Calcium 7.8 L (8.6-10.4) mg/dl Adrenal panel 10/10/18 Range/Units 21:42 Sodium 135 (133-145) mmol/L Potassium 4.9 (3.3-5.1) mmol/L Chloride 102 (96-108) mmol/L Carbon Dioxide 21 L (22-30) mmol/L BUN 46 H (8-23) mg/dl Creatinine 1.1 (0.7-1.2) mg/dl Glucose 279 H (70-105) mg/dL Calcium 7.8 L (8.6-10.4) mg/dl Total Bilirubin 0.4 (0.0-1.0) mg/dL AST 60 H (0-37) U/l ALT 231 H (0-40) U/l Alkaline Phosphatase 208 H (39-117) U/L Total Protein 5.1 L (5.9-8.4) gm/dL Albumin 2.3 L (3.2-5.2) gm/dL All other labs normal. Assessment and Plan (1) Multiple ecchymoses of both upper arms Assessment: Multiple medical problems and evolving multiple system organ dysfunction and coagulopathy with the skin ecchymoses and ulcerations. Plan: Supportive care as discussed with the patient, nursing staff and his . I will follow this patient peripherally along with the wound care nurse brenda vega. Status: Acute Priority: High Comment: This is multifactorial. Patient has diabetes neuropathy and is on warfarin. He has epidermal lysis and multiple areas of capillary bleeding and ecchymosis, scattered over his extremities and torso. (2) Skin ulceration Status: Acute Priority: Medium Comment: Epidermal ulceration at the site of amputation. Underlying capillary ecchymosis at the amputation site and proximally on the leg. Qualifiers: Non-pressure ulcer stage: limited to breakdown of skin Qualified Code(s): L98.491 - Non-pressure chronic ulcer of skin of other sites limited to breakdown of skin
[2018-10-11] MEDS ORDERED: GABAPENTIN 300 MG CAPSULE PO SCH (21:00)
[2018-10-11] MEDS ORDERED: INSULIN GLARGINE, HUMAN 1 UNIT/0.01 ML SQ SCH (21:00)
[2018-10-11] MEDS ORDERED: SENNOSIDES/DOCUSATE SODIUM 1 TAB TABLET PO SCH (21:00)
[2018-10-11] MEDS ORDERED: LATANOPROST OPHTH DROPS 2.5ML BOTTLE OU SCH (21:00)
[2018-10-11] MEDS ORDERED: ATORVASTATIN 20 MG TABLET PO SCH (21:00)
[2018-10-12] MEDS: PIPERACILLIN SODIUM/TAZOBACTAM 3.375 GM in DEXTROSE 5% IN WATER 50 ML IV SCH ×4 (00:43→17:02)
[2018-10-12] MEDS: HYDROCODONE/APAP 7.5/325MG TABLET PO PRN (03:29)
[2018-10-12] MEDS: ACETAMINOPHEN 1,000 MG/100 ML BOTTLE IV PRN ×2 (03:35→11:53)
[2018-10-12] MEDS: 0.9 % SODIUM CHLORIDE 10 ML SYRINGE IV SCH ×2 (05:56→12:04)
[2018-10-12 06:11] LABS: Mean Cell Volume 83.3 fL (80.0-100.0); Mean Corpuscular HGB Conc 32.4 g/dL (31.0-36.0); Platelet Count 75 K/mcL (140-440); RBC 5.02 M/mcL (4.50-5.90); Red Cell Distribution Width 24.8 % (11.5-14.5)
[2018-10-12 06:32] LABS: ALT/SGPT 187 U/l (0-40); Albumin 2.1 gm/dL (3.2-5.2); Albumin/Globulin Ratio 0.7 (1.0-2.3); Alkaline Phosphatase 188 U/L (39-117); Bilirubin,Direct 0.2 mg/dL (0.0-0.3); Blood Urea Nitrogen 41 mg/dl (8-23); Gamma Glutamyl Transpeptidase 358 U/L (8-61); Uric Acid 3.4 mg/dL (2.5-8.0)
--- NOTE | 2018-10-12 06:37 | XRay Report ---
CLINICAL INFORMATION: f/u infiltrates COMPARISON: 10/10/2018 FINDINGS: Moderate patchy perihilar infiltrates have progressed from study two days ago. Mild cardiomegaly with implantable cardioverter defibrillator again noted. Mediastinum and pulmonary vessels are unremarkable. No effusions IMPRESSION: Moderate patchy perihilar infiltrates progressing. Consider aspiration, infection or early ARDS Interpreted and Authenticated by: Valdo Coughlin 10/12/18
[2018-10-12 06:59] LABS: Anisocytosis 2+ (NONE SEEN); Band Neutrophils % 17 % (0-10); Dohle Bodies 1+ (NONE SEEN); Lymphocytes % 10 % (15-49); Monocytes % (Manual) 1 % (1-12); Platelet Estimate DECREASED (NORMAL); RBC Morphology ABNORM (NORMAL); Segmented Neutrophils % 72 % (38-78); Toxic Granulation 1+ (NONE SEEN)
[2018-10-12 07:50] LABS: Erythrocyte Sedimentation Rate 41 mm/hr (0-15)
[2018-10-12] MEDS: DOCUSATE SODIUM 100 MG CAPSULE PO SCH (08:08)
[2018-10-12] MEDS: AMIODARONE HCL 200 MG TABLET PO SCH (08:08)
[2018-10-12] MEDS: MULTIVIT,THER IRON,CA,FA & MIN 1 TABLET PO SCH (08:08)
[2018-10-12] MEDS: ASPIRIN 81 MG TAB.CHEW PO SCH (08:08)
[2018-10-12] MEDS: PANTOPRAZOLE 40 MG TABLET PO SCH (08:08)
[2018-10-12] MEDS: FUROSEMIDE 20 MG TABLET PO SCH (08:08)
[2018-10-12] MEDS: CLOTRIMAZOLE 10 MG TROCHE PO SCH ×4 (08:08→15:24)
[2018-10-12] MEDS: sitaGLIPtin 100 MG TABLET PO SCH (08:08)
[2018-10-12] MEDS: METOPROLOL SUCCINATE 25 MG TAB.XL.24H PO SCH (08:09)
[2018-10-12] MEDS: buPROPion 150 MG TAB.XL.24H PO SCH (08:09)
[2018-10-12] MEDS: INSULIN LISPRO 1 UNIT/0.01 ML UNIT SQ SCH ×3 (08:17→17:01)
[2018-10-12] MEDS: INSULIN GLARGINE, HUMAN 1 UNIT/0.01 ML SQ SCH (08:17)
--- NOTE | 2018-10-12 08:18 | Internal Med Progress Note ---
Medical - PN: Subj Patient information: Note initiated : 10/12/18 at 8:15 am Service Date, if different from initiated Date: [] Patient: Vadim Key 73 y/o M admitted on 10/11/18 for Crackles In Lung. Chief Complaint: [] Interval history: Mr. Key is a 73 year old M with a history of NYHA class III systolic heart failure with EF 26%/TAPVR/pulmonary embolism/atrial fibrillation/insulin- dependent diabetes who presents to [facility] ER from advanced healthcare at [place] with worsening shortness of breath that has progressed over the last couple of weeks. Patient is accompanied with his Aurora. Patient lives at [place] and sees primary care physician Dr. Rodriguez. He has been recovering from recent hospitalization at [place] and was transferred to [facility]. Patient denies shaking chills fever however endorses to being increasingly fatigued and weak over the last couple of weeks. Symptoms associated with productive yellow sputum. Denies associated shaking chills headache myalgia or joint pain or rash. He complains of associated loss of appetite. He has not been able to function or participate in therapies in the last few days. Initial workup in the ER was consistent with chest infiltrates consistent with pneumonia and sepsis with elevated white count. Hospitalist service was consulted for admission after patient received antibiotics along breathing treatments. At the time evaluation patient is lethargic fatigued. No family present. Was able to endorse a history as above but was very weak to provide a detailed history. Most of the history is obtained from review of medical records and ER physician. 10/12 Nurse reports concern for aspirating overnight, pt coughing with anything given orally. no PO meds given this morning. Increased need for oxygenation from room air to 6 L oxygen and SBP dip to 80's. BP most recently improved to ~100 and oxygenation need seems to be improving again. Telemetry was confirmed per nursing staff the patient is a DNR/comfort care. is coming in from [place] currently. 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 Review of Systems: denies headache/fever/chills/nausea/vomiting/chest or abdominal pain/diarrhea. Otherwise see above. - Constitutional Vitals: Vital Signs Temp Pulse Resp BP Pulse Ox 97.7 F 70 25 H 80/55 97 10/12/18 04:01 10/11/18 11:22 10/12/18 08:01 10/12/18 08:01 10/12/18 08:01 Period Temp Pulse Resp BP Sys/Saldivar Pulse Ox Last 24 Hr 96.8 F-97.7 F 70 18-28 65-115/53-73 91-97 Intake and Output 10/11/18 10/12/18 10/12/18 21:59 05:59 13:59 Intake Total 410 510 50 Output Total 276 1 Balance 134 510 49 Weight 70.806 kg Intake & Output: Intake & Output 10/11/18 10/12/18 10/12/18 21:59 05:59 13:59 Intake Total 410 510 50 Output Total 276 1 Balance 134 510 49 Weight 70.806 kg Intake: IV 50 150 50 Zosyn 3.375 gm In Dextrose 5% 50 50 50 in Water 50 ml @ 100 mls/hr IV Q6H [facility] Rx#:[id number] Oral 360 360 Output: Void Amount 275 # of times incontinent of urine 1 1 Other: Meal Nourishment/Supplement Percent of Meal Consumed 100% Feeding Ability Assist with Tray Set Up Urine Appearance Clear Urine Color Light Jocelin Exam: General: Awake, No acute Distress Eyes/N/T: EOMI, Head/Neck: neck supple, CV: irreg irreg, normal s1/s2 Pulm: Bilateral rhonchi, no wheezing Abd: soft, nontender, +BS x4 Ext: right BKA, Neuro: drowsy, no focal deficits, moves all extremities, Skin: warm/dry Medical - PN: Obj Da - Labs CBC & Chem 7: 10/12/18 03:27 10/12/18 03:27 Labs: Abnormal Lab Results 10/12/18 10/12/18 10/12/18 03:27 03:27 03:27 WBC Hgb Hct RDW Plt Count Gran % Lymph % (Auto) [place] % (Auto) Gran # Lymph # (Auto) [place] # (Auto) Band Neutrophils % Lymphocytes % Nucleated RBCs WBC Morphology Toxic Granulation Dohle Bodies Platelet Estimate RBC Morphology Anisocytosis ESR PT 26.9 H INR 2.5 H VBG Lactic Acid 2.2 H Carbon Dioxide POC BUN BUN 41 H Glucose POC Glucose Calcium 8.4 L POC WB Ioniz Calcium GGT 358 H AST 57 H ALT 187 H Alkaline Phosphatase 188 H Lactate Dehydrogenase 721 H C-Reactive Protein 14.0 H NT-Pro-B Natriuret Pep Total Protein 5.2 L Albumin 2.1 L Albumin/Globulin Ratio 0.7 L 10/12/18 10/11/18 10/11/18 03:27 08:02 00:16 WBC Hgb Hct RDW 24.8 H Plt Count 75 L Gran % Lymph % (Auto) [place] % (Auto) Gran # Lymph # (Auto) [place] # (Auto) Band Neutrophils % 17 H Lymphocytes % 10 L Nucleated RBCs 4 H WBC Morphology Abnorm A Toxic Granulation 1+ A Dohle Bodies 1+ A Platelet Estimate Decreased A RBC Morphology Abnorm A Anisocytosis 2+ A ESR 41 H PT 28.3 H INR 2.7 H VBG Lactic Acid Carbon Dioxide POC BUN BUN Glucose POC Glucose Calcium POC WB Ioniz Calcium GGT AST ALT Alkaline Phosphatase Lactate Dehydrogenase C-Reactive Protein NT-Pro-B Natriuret Pep 9457.0 H Total Protein Albumin Albumin/Globulin Ratio 10/10/18 10/10/18 10/10/18 21:42 21:42 21:42 WBC Hgb Hct RDW Plt Count Gran % Lymph % (Auto) [place] % (Auto) Gran # Lymph # (Auto) [place] # (Auto) Band Neutrophils % Lymphocytes % Nucleated RBCs WBC Morphology Toxic Granulation Dohle Bodies Platelet Estimate RBC Morphology Anisocytosis ESR PT 28.5 H INR 2.7 H VBG Lactic Acid 2.7 H Carbon Dioxide 21 L POC BUN 42 H BUN 46 H Glucose 279 H POC Glucose 227 H Calcium 7.8 L POC WB Ioniz Calcium 1.06 L GGT AST 60 H ALT 231 H Alkaline Phosphatase 208 H Lactate Dehydrogenase C-Reactive Protein NT-Pro-B Natriuret Pep Total Protein 5.1 L Albumin 2.3 L Albumin/Globulin Ratio 0.8 L 10/10/18 21:42 WBC 12.6 H Hgb 13.1 L Hct 40.4 L RDW 22.7 H Plt Count 94 L Gran % 96.0 H Lymph % (Auto) 3.4 L [place] % (Auto) 0.2 L Gran # 12.1 H Lymph # (Auto) 0.4 L [place] # (Auto) 0 L Band Neutrophils % Lymphocytes % Nucleated RBCs WBC Morphology Toxic Granulation Dohle Bodies Platelet Estimate RBC Morphology Anisocytosis ESR PT INR VBG Lactic Acid Carbon Dioxide POC BUN BUN Glucose POC Glucose Calcium POC WB Ioniz Calcium GGT AST ALT Alkaline Phosphatase Lactate Dehydrogenase C-Reactive Protein NT-Pro-B Natriuret Pep Total Protein Albumin Albumin/Globulin Ratio Meds: Medications Acetaminophen (Tylenol) 650 mg PO Q4-6HP PRN PRN Reason: PAIN/FEVER > 101 Last Admin: 10/11/18 14:50 Dose: 650 mg Documented by: Hydrocodone Bitart/Acetaminophen ([place] 5/325mg) 1 tab PO Q4HP PRN PRN Reason: PAIN LEVEL 3-6 Hydrocodone Bitart/Acetaminophen ([place] 7.5/325mg) 1 - 2 tab PO Q4HP PRN PRN Reason: Pain Last Admin: 10/11/18 20:31 Dose: 2 tab Documented by: Al Hydrox/Mg Hydrox/Simethicone (Maalox) 30 ml PO Q4HP PRN PRN Reason: Constipation Albuterol/Ipratropium (Duoneb) 3 ml NEB Q4HP PRN PRN Reason: Shortness Of Breath Or Wheezing Last Admin: 10/12/18 01:18 Dose: 3 ml Documented by: Amiodarone HCl (Cordarone) 200 mg PO [facility] Last Admin: 10/12/18 08:08 Dose: Not Given Documented by: Aspirin (Aspirin) 81 mg PO DAILY [facility] Last Admin: 10/12/18 08:08 Dose: Not Given Documented by: Atorvastatin Calcium (Lipitor) 40 mg PO HS [facility] Last Admin: 10/11/18 20:30 Dose: 40 mg Documented by: Bisacodyl (Dulcolax) 10 mg MT PRN PRN PRN Reason: Congestion Bupropion HCl (Wellbutrin Xl) 150 mg PO DAILY [facility] Last Admin: 10/12/18 08:09 Dose: Not Given Documented by: Clotrimazole (Mycelex) 10 mg PO 5XD [facility] Last Admin: 10/12/18 08:08 Dose: Not Given Documented by: Dextrose (Dextrose 50%) 0 ml IV UD PRN PRN Reason: Hypoglycemia Diagnostic Test (Pha) (Accu-Chek) 1 each FS ACHS [facility] Last Admin: 10/11/18 20:42 Dose: 1 each Documented by: Docusate Sodium (Colace) 100 mg PO BID [facility] Last Admin: 10/12/18 08:08 Dose: Not Given Documented by: Furosemide (Lasix) 20 mg PO DAILY [facility] Last Admin: 10/12/18 08:08 Dose: Not Given Documented by: Gabapentin (Neurontin) 300 mg PO [facility] Last Admin: 10/11/18 20:31 Dose: 300 mg Documented by: Glucose (Insta-Glucose) 15 gm PO PRN PRN PRN Reason: Hypoglycemia Levofloxacin (Levaquin) 750 mg in 150 mls @ 100 mls/hr IV Q24H [facility] Last Infusion: 10/11/18 11:30 Dose: Infused Documented by: Magnesium Sulfate (Magnesium Sulfate) 2 gm in 50 mls @ 50 mls/hr IV UD PRN PRN Reason: MG = or < 1.7 Acetaminophen (Ofirmev) 1,000 mg in 100 mls @ 200 mls/hr IV Q6HP PRN PRN Reason: PAIN/FEVER > 101 Last Infusion: 10/12/18 04:15 Dose: Infused Documented by: Piperacillin Sod/Tazobactam (Sod 3.375 gm/ Dextrose) 50 mls @ 100 mls/hr IV Q6H [facility]; Protocol Last Infusion: 10/12/18 06:26 Dose: Infused Documented by: Insulin Glargine (Lantus) 15 unit SQ HS [facility] Last Admin: 10/11/18 20:42 Dose: 15 units Documented by: Insulin Glargine (Lantus) 21 unit SQ DAILY [facility] Last Admin: 10/11/18 10:36 Dose: 21 unit Documented by: Insulin Human Lispro (Humalog) 0 unit SQ [facility]; Protocol Last Admin: 10/11/18 20:42 Dose: 2 unit Documented by: Iron Carb/Multivit/Signals Collection Technician/Folic Acid (Multivitamin W/Minerals) 1 tab PO DAILY [facility] Last Admin: 10/12/18 08:08 Dose: Not Given Documented by: Latanoprost (Xalatan Ophth Drops) 1 gtt OU [facility] Last Admin: 10/11/18 20:44 Dose: Not Given Documented by: Melatonin (Melatonin 3mg Tablet) 6 mg PO HSP PRN PRN Reason: Insomnia Metoprolol Succinate (Toprol Xl) 25 mg PO DAILY [facility] Last Admin: 10/12/18 08:09 Dose: Not Given Documented by: Ondansetron HCl (Zofran) 4 mg IV Q4HP PRN PRN Reason: Nausea And Vomiting Pantoprazole Sodium (Protonix) 40 mg PO QAMAC [facility] Last Admin: 10/12/18 08:08 Dose: Not Given Documented by: Timolol Maleate 0.5% (Eye Drops) 1 dose OS BID [facility] Last Admin: 10/12/18 08:08 Dose: Not Given Documented by: Potassium Chloride (Klor-Con) 40 meq PO DAILYP PRN PRN Reason: K+ < 3.5 Senna/Docusate Sodium (Senna Plus Tablet) 1 tab PO HS [facility] Last Admin: 10/11/18 20:31 Dose: 1 tab Documented by: Sitagliptin Phosphate (Januvia) 100 mg PO DAILY [facility] Last Admin: 10/12/18 08:08 Dose: Not Given Documented by: Sodium Chloride (Saline Flush) 10 ml IV Q8 [facility] Last Admin: 10/12/18 05:56 Dose: 10 ml Documented by: Warfarin Sodium (Coumadin) 2.5 mg PO DAILY@1400 [facility] Last Admin: 10/11/18 13:08 Dose: 2.5 mg Documented by: Warfarin Sodium (Coumadin Per Pharmacy) 1 order PO UD [facility] Medical - PN: A/P - Time Spent With Patient Total time spent is greater than 50% in coordination of care (as documented) at patient's floor/unit and/or counseling patient: - Narrative A/P Narrative: A: *Aspiration pneumonia: seems to be having recurrent aspiration -PSI score over 100, -leukocytosis improved -worsened CXR *Acute Hypoxic respiratory failure: 2/2 above -decline o/n now requiring 6l oxymask but improving again -pt would not allow nurse last night to suction orally *CAD & ACID/PPM: *CMP: Last echo 34%, nuclear stress test 2018 26%. *Atrial fibrillation: on amiodarone/metoprolol/anticoagulation on Coumadin *DM type II w/neuropathy: *Generalized weakness: *h/o PE: *Anxiety: on bupropion *Oropharyngeal Dysphagia: *goals of care: family discussion/decision today Plan: -broad antibiotic coverage for anaerobes/gram negatives, sputum/blood cultures, aspiration precaution. -ST following/aspiration precaution -cont ASA/Statin, -cont Amio -home lasix held for low BP and hold BB -basal insulin and SSI -dysphagia diet -PT OT/nutrition support -ppx: warfarin per pharm DNR/comfort care Medical - PN: Qual - VTE Deep Vein Thrombosis/Pulmonary Embolism Present on Admission: No
[2018-10-12] MEDS: DEXTROSE 50% 50 ML VIAL IV PRN ×2 (08:45→14:43)
[2018-10-12] MEDS: LEVOFLOXACIN 750 MG/150 ML BAG IV SCH (08:54)
[2018-10-12] MEDS: WARFARIN 2.5 MG TABLET PO SCH (13:58)
[2018-10-12] MEDS ORDERED: LORazepam 2 MG/ML VIAL IV PRN ×2 (14:42→18:02)
[2018-10-12] MEDS ORDERED: LACTOPEROXI/GLUC OXID/POT THIO 1 EACH GEL..EA. TOPICAL PRN (18:02)
[2018-10-12] MEDS ORDERED: SCOPOLAMINE 1 PATCH PATCH TOPICAL SCH (18:15)
[2018-10-12] MEDS ORDERED: ONDANSETRON 4 MG/2 ML VIAL IV PRN (18:27)
[2018-10-12] MEDS ORDERED: ACETAMINOPHEN 1,000 MG/100 ML BOTTLE IV PRN (18:27)
[2018-10-12] MEDS ORDERED: LORazepam 2 MG/ML VIAL ONE (19:13)
[2018-10-12] MEDS: LORazepam 2 MG/ML VIAL IV PRN ×3 (19:17→23:01)
[2018-10-12] MEDS ORDERED: SCOPOLAMINE 1 PATCH PATCH ONE (21:20)
[2018-10-12] MEDS ORDERED: 0.9 % SODIUM CHLORIDE 10 ML SYRINGE IV SCH (22:00)
--- NOTE | 2018-10-13 09:43 | Death Note ---
Discharge Sum: Prov - Provider Patient information: Note initiated : 10/13/18 at 9:39 am Service Date, if different from initiated Date: [] Patient: Vadim Key 73 y/o M admitted on 10/11/18 for Crackles In Lung. Chief Complaint: [] Primary care physician: Valdo Barrera Consults: 10/11/18 Consult to Physician [CONS] Stat Comment: Consulting Provider: Derrick Clark Reason For Exam: Physician to Consult Discharge Sum: Summary - Date and Time Date of admission: 10/11/18 01:15 Date of : 10/12/18 Time of : 23:16 - Summary Details: Mr. Key is a 73 year old M with a history of NYHA class III systolic heart failure with EF 26%/TAPVR/pulmonary embolism/atrial fibrillation/insulin- dependent diabetes who presents to [facility] ER from advanced healthcare at [place] with worsening shortness of breath that has progressed over the last couple of weeks. Patient is accompanied with his [place]. Patient lives at [place] and sees primary care physician Dr. Rodriguez. He has been recovering from recent hospitalization at [place] and was transferred to [facility]. Patient denies shaking chills fever however endorses to being increasingly fatigued and weak over the last couple of weeks. Symptoms associated with productive yellow sputum. Denies associated shaking chills headache myalgia or joint pain or rash. He complains of associated loss of appetite. He has not been able to function or participate in therapies in the last few days. Initial workup in the ER was consistent with chest infiltrates consistent with pneumonia and sepsis with elevated white count. Hospitalist service was consulted for admission after patient received antibiotics along breathing treatments. At the time evaluation patient is lethargic fatigued. No family present. Was able to endorse a history as above but was very weak to provide a detailed history. Most of the history is obtained from review of medical records and ER physician. 10/12 Nurse reports concern for aspirating overnight, pt coughing with anything given orally. no PO meds given this morning. Increased need for oxygenation from room air to 6 L oxygen and SBP dip to 80's. BP most recently improved to ~100 and oxygenation need seems to be improving again. Family confirmed per nursing staff the patient is a DNR/comfort care. is coming in from [place] currently. 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 Family discussion and there was decision was made that once all daughters arrived to make him complete comfort care only. Family arrived by the evening and he was made complete comfort care at that time. Patient at 2316 hour. - Additional Data Attending physician: eDrrick Clark
[2018-10-15] MEDS ORDERED: SCOPOLAMINE 1 PATCH PATCH TOPICAL SCH (18:15)
== END 2018-10-13 03:10 | disposition expired | DRG 871 ==
LOC: ED 21:14 → MEDSUR 10-11 01:15 → ICU 10-11 01:15
PROVIDERS: ADMIT Internal Medicine; ATTEND Internal Medicine